=== PATIENT | male | born 1970 | race Caucasian/White ===

== ENCOUNTER 2019-02-02 10:07 | Emergency (ER) | payer OTHER ==
[2019-02-02] MEDS ORDERED: Ondansetron INJ* 2 MG/ML VIAL IV ONE (10:15)
[2019-02-02] MEDS ORDERED: Morphine INJ* 10 MG/ML 1 ML CARPUJECT IV ONE (10:15)
[2019-02-02] MEDS ORDERED: Morphine 10 MG/ML VIAL (1 ml) IV ONE (10:21)
[2019-02-02] MEDS ORDERED: NS 0.9% 1000 ML** 1,000 ML IV ONE (10:43)
[2019-02-02] MEDS ORDERED: Iodixanol* (CONTRAST) 320 MG/ML 100 ML SDV IV ONE (10:59)
[2019-02-02 11:51] LABS: ABS Basophils 0.1 10^3/ul (0-0.2); ABS Eosinophils 0.1 10^3/ul (0-0.6); ABS Lymphocytes 1.2 10^3/ul (1.0-4.8); ABS Monocytes 0.6 10^3/ul (0-0.8); ABS Neutrophils 6.8 10^3/ul (1.5-7.7); Eosinophil % 1.2 %; Hematocrit 34 % (42-52); Hemoglobin 11.3 g/dL (14.0-18.0); Lymphocyte % 13.5 %; Mean Corpuscular HGB Conc 33 g/dL (31-36); Mean Corpuscular Hemoglobin 26 pg (27-31); Mean Corpuscular Volume 79 fL (80-94); Mean Platelet Volume 9.5 fL (7.4-10.4); Platelet Count 194 10^3/uL (150-450); Red Blood Count 4.31 10^6 /uL (4.18-5.48); Red Cell Distribution Width 15 % (10-15); White Blood Count 8.7 10^3/uL (3.5-10.8)
[2019-02-02 12:14] LABS: Albumin 3.7 g/dL (3.2-5.2); Albumin/Globulin Ratio 1.5 (1-3); BUN/Creatinine Ratio 20.5 (8-20); Calcium 8.2 mg/dL (8.6-10.3); EGFR African American 129.7 (>60); EGFR Non-African American 107.2 (>60); Globulin 2.4 g/dL (2-4); Potassium 3.9 mmol/L (3.5-5.0); Total Bilirubin 0.4 mg/dL (0.2-1.0); Total Protein 6.1 g/dL (6.4-8.9)
--- NOTE | 2019-02-02 12:24 | ED ---
Adult Trauma - HPI Summary HPI Summary: This patient is a 48-year-old male presenting to the ED by way of EMS after a ladder fell out from underneath him and he landed directly onto the ladder. He is endorsing diffuse neck and back pain. However, he was able to ambulate immediately following. He is endorsing bilateral calf pain which he states is where he fell onto the ladder. He denies hitting his head or LOC. Denies any confusion, memory loss, visual changes. He is endorsing neck pain, however was able to move about the neck prior to being placed in a c-collar by EMS. He denies any abdominal pain. He denies any anterior like pain or pain to the bilateral upper extremities. He states he has full range of motion, however is endorsing pain diffusely throughout the back as well as to the right buttocks. - History of Current Complaint Chief Complaint: EDTraumaMultiple Stated Complaint: FALL PER EMS Time Seen by Provider: 02/02/19 10:09 Hx Obtained From: Patient Mechanism of Injury: Blunt Trauma Ambulatory at the Scene: No Loss of Consciousness: no loss of consciousness Patient Location: Back Force: Medium Onset/Duration: Started Minutes Ago Onset of Pain: Minutes Onset Severity: Severe Current Severity: Severe Pain Intensity: 10 Pain Scale Used: 0-10 Numeric Location: Neck, Back Character: Aching Aggravating Factor(s): Nothing Alleviating Factor(s): Nothing Associated Signs & Symptoms: Positive: Negative - Allergy/Home Medications Allergies/Adverse Reactions: Allergies Allergy/AdvReac Type Severity Reaction Status Date / Time No Known Allergies Allergy Verified 05/14/12 08:05 Home Medications: Home Medications Melatonin/Pyridoxine HCl (B6) [Melatonin] 2 tab PO BEDTIME PRN 02/02/19 [ History Confirmed 02/02/19] Naproxen Sodium [Aleve] 220 mg PO BID PRN 02/02/19 [History Confirmed 02/02/19] PMH/Surg Hx/FS Hx/Imm Hx Previously Healthy: Yes Endocrine/Hematology History: Reports: Hx Diabetes - hx; none since Gastric Bypass surg 2008 Denies: Hx Anticoagulant Therapy Neurological History: Denies: Hx Dementia - Surgical History Surgery Procedure, Year, and Place: gastric bypass 2008. BILAT KNEE SURGERY - Immunization History Hx Pertussis Vaccination: No Immunizations Up to Date: Yes Infectious Disease History: No Infectious Disease History: Denies: Traveled Outside the [place] in Last 30 Days - Social History Occupation: Employed Full-time Lives: With Family Alcohol Use: Occasionally Alcohol Amount: about 1 drink a day, usually less Hx Substance Use: No Substance Use Type: Reports: Excessive Caffeine Hx Tobacco Use: No Smoking Status (MU): Never Smoked Tobacco Review of Systems Negative: Fever, Chills, Fatigue, Skin Diaphoresis Negative: Palpitations, Chest Pain Negative: Shortness Of Breath, Cough Genitourinary: Negative Positive: no symptoms reported, see HPI Positive: Arthralgia, Myalgia Negative: Rash, Bruising Neurological: Negative All Other Systems Reviewed And Are Negative: Yes Physical Exam Triage Information Reviewed: Yes Vital Signs On Initial Exam: Initial Vitals Temp Pulse Resp BP Pulse Ox 98.6 F 83 16 127/82 100 02/02/19 10:08 02/02/19 10:08 02/02/19 10:08 02/02/19 10:08 02/02/19 10:08 Vital Signs Reviewed: Yes Appearance: Positive: Well-Appearing, Well-Nourished Skin: Positive: Warm, Skin Color Reflects Adequate Perfusion Head/Face: Positive: Normal Head/Face Inspection Eyes: Positive: EOMI, LUZ, Conjunctiva Clear Neck: Positive: Supple, No Lymphadenopathy Respiratory/Lung Sounds: Positive: Clear to Auscultation, Breath Sounds Present Cardiovascular: Positive: RRR, Pulses are Symmetrical in both Upper and Lower Extremities Musculoskeletal: Positive: Pain @ - diffuse back pain Neurological: Positive: Sensory/Motor Intact, Alert, Oriented to Person Place, Time Psychiatric: Positive: Normal, Affect/Mood Appropriate AVPU Assessment: Alert Diagnostics - Vital Signs Vital Signs Temp Pulse Resp BP Pulse Ox 02/02/19 11:33 63 20 113/74 02/02/19 10:34 20 02/02/19 10:08 98.6 F 83 16 127/82 100 - Laboratory Lab Results: Lab Results 02/02/19 02/02/19 02/02/19 Range/Units 11:43 11:43 11:43 WBC 8.7 (3.5-10.8) 10^3/uL RBC 4.31 (4.18-5.48) 10^6 /uL Hgb 11.3 L (14.0-18.0) g/dL Hct 34 L (42-52) % MCV 79 L (80-94) fL MCH 26 L (27-31) pg MCHC 33 (31-36) g/dL RDW 15 (10-15) % Plt Count 194 (150-450) 10^3/uL MPV 9.5 (7.4-10.4) fL Neut % (Auto) 78.0 % Lymph % (Auto) 13.5 % [place] % (Auto) 6.7 % Eos % (Auto) 1.2 % Baso % (Auto) 0.6 % Absolute Neuts (auto) 6.8 (1.5-7.7) 10^3/ul Absolute Lymphs (auto) 1.2 (1.0-4.8) 10^3/ul Absolute Monos (auto) 0.6 (0-0.8) 10^3/ul Absolute Eos (auto) 0.1 (0-0.6) 10^3/ul Absolute Basos (auto) 0.1 (0-0.2) 10^3/ul Absolute Nucleated RBC 0.0 10^3/ul Nucleated RBC % 0.0 Sodium 139 (135-145) mmol/L Potassium 3.9 (3.5-5.0) mmol/L Chloride 109 (101-111) mmol/L Carbon Dioxide 26 (22-32) mmol/L Anion Gap 4 (2-11) mmol/L BUN 16 (6-24) mg/dL Creatinine 0.78 (0.67-1.17) mg/dL Est GFR ( Amer) 129.7 (>60) Est GFR (Non-Af Amer) 107.2 (>60) BUN/Creatinine Ratio 20.5 H (8-20) Glucose 93 (70-100) mg/dL Lactic Acid 0.8 (0.5-2.0) mmol/L Calcium 8.2 L (8.6-10.3) mg/dL Total Bilirubin 0.40 (0.2-1.0) mg/dL AST 22 (13-39) U/L ALT 20 (7-52) U/L Alkaline Phosphatase 62 (34-104) U/L Total Protein 6.1 L (6.4-8.9) g/dL Albumin 3.7 (3.2-5.2) g/dL Globulin 2.4 (2-4) g/dL Albumin/Globulin Ratio 1.5 (1-3) Result Diagrams: 02/02/19 11:43 02/02/19 11:43 Lab Statement: Any lab studies that have been ordered have been reviewed, and results considered in the medical decision making process. Adult Trauma Course/Dx - Course Course Of Treatment: Patient arrives by EMS in a c-collar. Patient is refusing clothing removal/cutting clothing and states he will do it himself if needed. He states he is able to move all extremities, however he is endorsing diffuse back pain. He has back pain at baseline. He is also endorsing cervical spine tenderness. Physical examination, patient has no pain directly over the cervical spine but diffuse pain throughout back. No step-off noted. No signs of trauma. He is moving all [address] chest/abdomen/pelvis with a CT cervical spine obtained. These were all without any significant findings except for swelling to the posterior upper buttocks on the right side. C-collar removed and patient was ambulatory. He states he is okay for discharge at this time and feels well, just "sore." He was given morphine while in the ED and he is given tramadol and Flexeril for prescriptions. - Diagnoses Differential Diagnosis/HQI/PQRI: Positive: Contusion(s), Hematoma(s) Provider Diagnoses: Fall, Trauma Discharge - Sign-Out/Discharge Documenting (check all that apply): Patient Departure Patient Received Moderate/Deep Sedation with Procedure: No - Discharge Plan Condition: Good Disposition: HOME Prescriptions: Cyclobenzaprine TAB* [Flexeril TAB*] 10 mg PO BID PRN #10 tab PRN Reason: Pain - Mild traMADol TAB* [Ultram*] 50 mg PO Q8H PRN #12 tab MDD 3 PRN Reason: Pain Patient Education Materials: Hematoma (ED) Forms: *Work Release Referrals: Emiliano Hope MD [Primary Care Provider] - Additional Instructions: Please return to the ED if he develop any worsening or changing symptoms Heat as much as possible and rest Ibuprofen 600mg 3 times daily 5 days for inflammation Tramadol as needed for pain Flexeril twice daily for a muscle relaxer - Billing Disposition and Condition Condition: GOOD Disposition: Home
[2019-02-02 12:38] VITALS: BP 135/77
== END 2019-02-02 12:37 | disposition home or self-care (01) ==
LOC: ED 10:07
DX: M54.9 Dorsalgia, unspecified (principal); M79.662 Pain in left lower leg; M79.661 Pain in right lower leg; M50.323 Other cervical disc degeneration at C6-C7 level; W11.XXXA Fall on and from ladder, initial encounter; Y92.9 Unspecified place or not applicable; Y99.0 Civilian activity done for income or pay; Z98.84 Bariatric surgery status
CPT/HCPCS: 36415; 70450; 71260; 72125; 74177; 80053; 83605; 85025; 96361; 96374; 96375; 99283; J2270; J2405; Q9967

== ENCOUNTER 2019-05-30 15:04 | Emergency (ER) | payer BC, OTHER ==
[2019-05-30] MEDS ORDERED: Ketorolac INJ* 30 MG/ML 1 ML VIAL IM ONE (15:36)
--- NOTE | 2019-05-30 15:39 | ED ---
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 He notes that he has Hx of bad knees but his left knee is abnormally swollen, burning, has decreased ROM, and he hears crunching/popping when he moves it. He rates his current pain severity due to his left knee a 9/ 10. No aggravating or alleviating factors noted. He also denies any fever. - History of Current Complaint Chief Complaint: EDExtremityLower Stated Complaint: LEFT KNEE PAIN PER PT Time Seen by Provider: 05/30/19 15:22 Hx Obtained From: Patient Onset of Pain: Hours Onset/Duration: Still Present Severity Initially: Severe Severity Currently: Severe Pain Intensity: 9 Pain Scale Used: 0-10 Numeric Timing: Constant, Lasting Hours Location: Is Discrete @ - left knee Associated Signs And Symptoms: Positive: Swelling, Knee Pain. Negative: Fever Aggravating Factor(s): Nothing Alleviating Factor(s): Nothing - Allergies/Home Medications Allergies/Adverse Reactions: Allergies Allergy/AdvReac Type Severity Reaction Status Date / Time No Known Allergies Allergy Verified 05/30/19 15:14 PMH/Surg Hx/FS Hx/Imm Hx Endocrine/Hematology History: Reports: Hx Diabetes - hx; none since Gastric Bypass surg 2009 Denies: Hx Anticoagulant Therapy Neurological History: Denies: Hx Dementia - Surgical History Surgery Procedure, Year, and Place: gastric bypass 2009. BILAT KNEE SURGERY Infectious Disease History: No Infectious Disease History: Denies: Traveled Outside the [place] in Last 30 Days - Family History Known Family History: Negative: Renal Disease - Social History Alcohol Use: Occasionally Alcohol Amount: about 1 drink a day, usually less Hx Substance Use: No Substance Use Type: Reports: Excessive Caffeine Hx Tobacco Use: No Smoking Status (MU): Never Smoked Tobacco Review of Systems Negative: Fever Positive: Other - pos - swelling, knee pain All Other Systems Reviewed And Are Negative: Yes Physical Exam - Summary Physical Exam Summary: Constitutional: Well-developed, Well-nourished, Alert. (-) Distressed Skin: Warm, Dry HENT: Normocephalic; Atraumatic Eyes: Conjunctiva normal Neck: Musculoskeletal ROM normal neck. (-) JVD, (-) Stridor, (-) Tracheal deviation Cardio: Rhythm regular, rate normal, Heart sounds normal; Intact distal pulses; The pedal pulses are 2+ and symmetric. Radial pulses are 2+ and symmetric. (-) Murmur Pulmonary/Chest wall: Effort normal. (-) Respiratory distress, (-) Wheezes, (-) Rales Abd: Soft, (-) tenderness, (-) Distension, (-) Guarding, (-) Rebound Musculoskeletal: (-) Edema Left Knee: Diffuse swelling, minimal erythema, pain with movement, NV intact, presentation not concerning for septic joint Lymph: (-) Cervical adenopathy Neuro: Alert, Oriented x3 Psych: Mood and affect Normal Triage Information Reviewed: Yes Vital Signs On Initial Exam: Initial Vitals Temp Pulse Resp BP Pulse Ox 98.8 F 82 16 128/76 99 05/30/19 15:10 05/30/19 15:10 05/30/19 15:10 05/30/19 15:10 05/30/19 15:10 Vital Signs Reviewed: Yes Procedures - Sedation Patient Received Moderate/Deep Sedation with Procedure: No Diagnostics - Vital Signs Vital Signs Temp Pulse Resp BP Pulse Ox 05/30/19 15:10 98.8 F 82 16 128/76 99 - Laboratory Lab Statement: Any lab studies that have been ordered have been reviewed, and results considered in the medical decision making process. - Radiology Knee XR Radiology Interpretation Completed By: Radiologist Summary of Radiographic Findings: IMPRESSION: 1. MODERATE JOINT EFFUSION. 2. TRICOMPARTMENTAL CHONDROCALCINOSIS. 3. NO FRACTURE IDENTIFIED. ED Physician has reviewed this report. 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 He notes that he has Hx of bad knees but his left knee is abnormally swollen, burning, has decreased ROM, and he hears crunching/popping when he moves it. A knee XR reveals: 1. MODERATE JOINT EFFUSION. 2. TRICOMPARTMENTAL CHONDROCALCINOSIS. 3. NO FRACTURE IDENTIFIED. Pt will be given knee immobilizer. Final Dx is knee joint effusion. Pt will be discharged home with PCP and orthopedics follow up. Pt is agreeable with this plan. - Diagnoses Provider Diagnoses: Knee effusion, left Discharge ED - Sign-Out/Discharge Documenting (check all that apply): Patient Departure - discharge - Discharge Plan Condition: Stable Disposition: HOME Patient Education Materials: Swollen Knee Joint (ED) Forms: *Work Release Referrals: Emiliano Hope MD [Primary Care Provider] - 3 Days Robbin Leon MD [Medical Doctor] - 3 Days Additional Instructions: Please follow up with you primary care provider within 3 days. Please return to the ED for any new or worsening symptoms. - Billing Disposition and Condition Condition: STABLE Disposition: Home - Attestation Statements Document Initiated by Scribe: Yes Documenting Scribe: Darian Rapp Provider For Whom Guadalupe is Documenting (Include Credential): Ilya Lima DO Scribe Attestation: IDarian, scribed for Ilya Lima DO on 05/30/19 at 1823. Scribe Documentation Reviewed: Yes Provider Attestation: The documentation as recorded by the scribeDarian accurately reflects the service I personally performed and the decisions made by , Ilya Lima DO Status of Scribe Document: Viewed
[2019-05-30 17:47] VITALS: BP 108/67
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
--- OUTSIDE RECORDS SUMMARY | 2019-06-02 15:40 | XMS REPORT | Summary of Care ---
:1970 Author Organization [facility] Address [address] [place] [address] Care Team Providers Name Role Phone Emiliano Hope Primary Care Provider Reason for Referral MRI/CAT/PET Scan (Routine) Status Reason Specialty Diagnoses / Referred By Referred To Procedures Contact Contact Pending Review Diagnoses Neck pain Clarissa, Procedures MR CERVICAL SPINE WO CONTRAST ASIF Andreson [address] [place] [id number] Refer to Department Only (Routine) Status Reason Specialty Diagnoses / Referred By Referred To Contact Procedures Contact Authorized Physical Therapy Diagnoses Neck pain Radiculopathy affecting upper extremity Pacheco Romo NP Orthopaedics - [address] [facility] Physical [place], [place] Therapy [id number] [place] [address] Drive Phone: [address] [phone] [place], [place] Fax: [phone] Reason for Visit Reason Comments Numbness bilateral arms and hands are going numb, has carpal tunnel and has been digging water line by hand for past few days and he thinks he overdid it. Injection flu vaccine Encounter Details Date Type Department Care Team Description 04/15/2019 Office Visit Johnathan Cuevas [place], Radiculopathy affecting upper extremity (Primary Dx); Practice [facility] [place] Neck pain [address] [facility] [address] [place] [address] [place] [address] [phone] Allergies Active Allergy Reactions Severity Noted Date Comments No Known Drug Allergy 07/22/2007 documented as of this encounter (statuses as of 04/15/2019) Medications Medication Sig Dispensed Refills Start Date End Date Status Childrens Multivitamin 60 Take by mouth. 0 Active MG Oral Chew Tab CALCIUM 500 + D PO Take by mouth. 0 Active cyanocobalamin (VITAMIN Take 50 mcg by 0 Active B12) 50 MCG Oral Tab mouth. Naproxen Sodium (ALEVE) Take by mouth 0 Active 220 MG Oral Cap NEEDED. diclofenac (VOLTAREN) 75 Take 1 Tab by 60 Tab 0 02/06/2019 Active MG Oral Tab EC mouth TWICE DAILY. cyclobenzaprine Take 1 Tab by 42 Tab 0 02/06/2019 Active (FLEXERIL) 10 MG Oral Tab mouth THREE TIMES DAILY NEEDED (muscle spasm). Misc. Devices (DONUT 20 Inches by 1 Each 0 02/06/2019 Active PESSARY) Does not apply Does not apply Misc route DAILY NEEDED (sitting). Melatonin 1 MG Oral Cap Take 2 mg by 0 Active mouth. predniSONE (DELTASONE) 20 Take 1 Tab by 10 Tab 0 04/15/2019 Active MG Oral TabIndications: mouth TWICE Neck pain, Radiculopathy DAILY. affecting upper extremity documented as of this encounter (statuses as of 04/15/2019) Active Problems Problem Noted Date History of diabetes mellitus resolved following bariatric surgery 12/10/2016 Obesity, unspecified 07/22/2007 documented as of this encounter (statuses as of 04/15/2019) Resolved Problems Problem Noted Date Resolved Date Diabetes mellitus 07/22/2007 11/11/2015 Overview: Replaced inactive diagnosis KEYON (obstructive sleep apnea) 07/22/2007 11/11/2015 documented as of this encounter (statuses as of 04/15/2019) Immunizations Name Administration Dates Next Due Influenza [...] Sign Reading Time Taken Comments Blood Pressure 122/68 04/15/2019 2:52 PM EDT Pulse 68 04/15/2019 2:52 PM EDT Temperature 37.2 04/15/2019 2:52 PM C (99 EDT F) Respiratory Rate 18 04/15/2019 2:52 PM EDT Oxygen Saturation 98% 04/15/2019 2:52 PM EDT Inhaled Oxygen Concentration - - Weight 115.8 kg (255 lb 3.2 oz) 04/15/2019 2:52 PM EDT Height 174 cm (5' 8.5") 04/15/2019 2:52 PM EDT Body Mass Index 38.24 04/15/2019 2:52 PM EDT documented in this encounter Patient Instructions Patient InstructionsMonica Romo NP - 04/15/2019 3:00 PM EDT Referral to physical therapy is in - schedule this appointment. We will call you to schedule the MRI. Prednisone twice daily for 5 days. Continue flexeril and nsaids. Heating pad to neck. Rest and avoid aggravating activities. Cervical Radiculopathy WHAT YOU NEED TO KNOW: What is cervical radiculopathy? Cervical radiculopathy is a painful condition that happens when a spinal nerve in your neck is pinched or irritated. What causes cervical radiculopathy? Changes in the vertebrae (bones) and discs in your neck can putpressure on a spinal nerve. Discs are natural, spongy cushions between your vertebrae that allow your spine to move. The following can cause a pinched nerve: Disc damage may occur if a disc flattens, bulges, or moves over time. An injury can also causedisc damage. Cervical spondylosis is when the vertebrae in your neck break down. This normally occurs as you age. Growths , such as tumors or cysts (fluid-filled lumps), may grow and press on the nerve. What are the signs and symptoms of cervical radiculopathy? The most common symptom is sharp pain that travels from your neck all the way down your arm. You may have pain in your shoulder, chest, and hand. The pain may get worse with movement or when you cough or sneeze. 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 Your healthcare provider will ask when and how your symptoms began. He will gently press on your neck to check for tenderness and areas that are not shaped correctly. He will also check your arms and hands for numbness or weakness. You may have any of the following: Provocative tests are done to check your response to certain movements. He will ask you to move your neck, shoulder, and arm in different ways. Some movements will increase your symptoms, while others will make you feel better. An x-ray is a picture of the bones and tissues in your neck. An MRI or a CT scan may be used to take pictures of your neck. The pictures can show problems and changes in your nerves, discs, and vertebrae. You may be given dye to help the pictures show up better. Tell the healthcare provider if you have ever had an allergic reaction to contrast dye. Do notenter the MRI room with anything metal. Metal can cause serious injury. Tell the healthcare providerif you have any metal in or on your body. An electromyography is also called an EMG. An EMG is done to test the function of your musclesand the nerves that control them. Electrodes (wires) are placed on the muscle being tested. [place] may be attached to the electrodes and placed in your skin. The electrical activity of your muscles and nerves is measured by a machine attached to the electrodes. Your muscles are tested at rest and during movement. How is cervical radiculopathy treated? NSAIDs decrease swelling and pain. This medicine can be bought without a doctor's order. This medicine can cause stomach bleeding or kidney problems in certain people. If you take blood thinner medicine, always ask your healthcare provider if NSAIDs are safe for you. Always read the medicine label and follow the directions on it before using this medicine. Prescription pain medicine may be given to decrease pain. Do not wait until the pain is severebefore you take this medicine. Steroids help decrease pain and swelling. These may be given as a pill or as an injection in your neck. You may need more than 1 injection if your symptoms do not improve after the first treatment. Physical therapy helps stretch and strengthen your muscles. Your physical therapist can teach you how to improve your posture and the way you hold your neck. He may also teach you how to be safely active and avoid further injury. He can also help you develop an exercise program that is safe for your back and neck. Surgery may be used to treat a pinched nerve if other treatments have not helped after 6 to 12weeks. How can I manage my symptoms? Ice helps decrease swelling and pain. Ice may also help prevent tissue damage. Use an ice pack, or put crushed ice in a plastic bag. Cover it with a towel and place it on your neck for 15 to 20 minutes every hour or as directed. Rest when you feel it is needed. Slowly start to do more each day. Return to your daily activities as directed. Wear a soft collar. You may be given a soft collar to support your neck while you sleep. Wear the soft collar only as directed. Do light stretches and regular exercise. Your healthcare provider may suggest light stretches to help decrease stiffness in your neck and arm as you recover. After your pain is controlled, you may benefit from regular exercise. Ask what type of exercise is safe for your back and neck. Review your work area. A comfortable work area can help prevent neck strain. Ask your employerfor an ergonomic review to check the position of your desk, chair, phone, and computer. Make any necessary adjustments for your comfort. When should I contact my healthcare provider? You are losing weight without trying. Your pain is worse, even with medicine. One or both hands feel more numb than before, or you cannot move your fingers well. You have questions or concerns about your condition or care. CARE AGREEMENT: You have the right to help plan your care. Learn about your health condition and how it may be treated. Discuss treatment options with your caregivers to decide what care you want to receive. You always have the right to refuse treatment. The above information is an educational audiologist only. It is not intended as medical advice for individual conditions or treatments. Talk to your doctor, nurse or pharmacist before following any medical regimen to see if it is safe and effective for you. 2016 [employer] Information is for End User's use only and may not be sold, redistributed or otherwise used for commercial purposes. All illustrations and images included in CareNotes are the copyrighted property of [employer] or [employer]. documented in this encounter Progress Notes Monica Romo NP - 04/15/2019 3:00 PM EDT PATIENT: Darrell Felton : 1970 DATE OF SERVICE: 04/15/2019 CHIEF COMPLAINT: Chief Complaint Patient presents with Numbness bilateral arms and hands are going numb, has carpal tunnel and has been digging water line by handfor past few days and he thinks he overdid it. Injection flu vaccine Subjective HISTORY OF PRESENT ILLNESS: Darrell Felton is a 48-y.o. male. HPI He has carpal tunnel. He replaced water line recently, had to do a lot of digging over the last 2 days by hand, now he is having difficulty closing his fist, burning in his wrist, numbness down arms from elbows to fingers like pins and needles "when hands fall asleep". He has been taking flexeril and diclofenac which hasn't been helping with the pain, having muscle spasms in his elbow and forearm.Numbness is entire bilat hands. He has neck and back pain chronically, disc problems in neck, long time ago injured his back moving a desk at work upper back/neck. Discs slips sometimes and then he cant move head neck or back. Not having increased pain in neck/ back after digging, at baseline. 02/02/19 fell 16 feet off a ladder. Neck and back pain at that time, Ct scan at ER was negative for acute injuries. Past Medical History: Diagnosis Date B12 deficiency [...] mouth THREE TIMES DAILY NEEDED (muscle spasm). diclofenac (VOLTAREN) 75 MG Oral Tab EC Take 1 Tab by mouth TWICE DAILY. Melatonin 1 MG Oral Cap Take 2 mg by mouth. Misc. Devices (DONUT PESSARY) Does not apply Misc 20 Inches by Does not apply route DAILY NEEDED (sitting). Naproxen Sodium (ALEVE) 220 MG Oral Cap Take by mouth NEEDED. predniSONE (DELTASONE) 20 MG Oral Tab Take 1 Tab by mouth TWICE DAILY. No current facility-administered medications for this visit. [...] file Gets together: Not on file Attends voodoo service: Not on file Active member of [...] Narrative Not exercise due to knee problems Over the last 2 weeks, have you been feeling down, depressed, anxious, or hopeless?: 0 Over the past 2 weeks, have you felt little interest or pleasure in doing things ?: 0 REVIEW OF SYSTEMS: Review of Systems Constitutional: Negative for chills, fever and malaise/fatigue. HENT: Negative for congestion, sinus pain and sore throat. Respiratory: Negative for cough and shortness of breath. Cardiovascular: Negative for chest pain and palpitations. Musculoskeletal: Positive for back pain, joint pain (see hpi) and neck pain. Neurological: Positive for tingling and sensory change (see hpi). Negative for dizziness, weakness and headaches. Objective PHYSICAL EXAM: VITALS: BP 122/68 (BP Location: Right arm, Patient Position: Sitting) | Pulse 68 | Temp 99 F (37.2 C) (Tympanic) | Resp 18 | Ht 5' 8.5" (1.74 m) | Wt 255 lb 3.2 oz (115.8 kg) | SpO2 98%| BMI 38.24 kg/m Body mass index is 38.24 kg/m. Physical Exam Vitals signs and nursing note reviewed. Constitutional: General: He is not in acute distress. Appearance: Normal appearance. He is well-developed. Cardiovascular: Rate and Rhythm: Normal rate and regular rhythm. Heart sounds: Normal heart sounds. No murmur. No friction rub. No gallop. Pulmonary: Effort: Pulmonary effort is normal. No respiratory distress. Breath sounds: Normal breath sounds. Musculoskeletal: Right shoulder: He exhibits normal range of motion, no tenderness and no crepitus. Left shoulder: Normal. He exhibits normal range of motion, no tenderness and no crepitus. Right elbow: Normal. Left elbow: Normal. Right wrist: Normal. Left wrist: Normal. Cervical back: He exhibits tenderness, pain and spasm. He exhibits normal range of motion, no swelling, no edema and no deformity. Thoracic back: Normal. Lumbar back: Normal. Back: Right upper arm: Normal. Right forearm: Normal. Neurological: General: No focal deficit present. Mental Status: He is alert. Sensory: Sensation is intact. Motor: Motor function is intact. Coordination: Coordination is intact. Deep Tendon Reflexes: Reflexes are normal and symmetric. Psychiatric: Mood and Affect: Mood and affect normal. Speech: Speech normal. Behavior: Behavior normal. Behavior is cooperative. ASSESSMENT / IMPRESSION: ICD-9-CM ICD-10-CM 1. Radiculopathy affecting upper extremity 723.4 M54.10 REFER TO PHYSICAL THERAPY / REHAB predniSONE (DELTASONE) 20 MG Oral Tab 2. Neck pain 723.1 M54.2 REFER TO PHYSICAL THERAPY / REHAB predniSONE (DELTASONE) 20 MG Oral Tab MR CERVICAL SPINE WO CONTRAST Plan 1. Neck pain - REFER TO PHYSICAL THERAPY / REHAB; Standing - predniSONE (DELTASONE) 20 MG Oral Tab; Take 1 Tab by mouth TWICE DAILY. Dispense: 10 Tab; Refill:0 - MR CERVICAL SPINE WO CONTRAST; Future If after conservative measures he is still having problems will refer to Dr. Muro. 2. Radiculopathy affecting upper extremity - REFER TO PHYSICAL THERAPY / REHAB; Standing - predniSONE (DELTASONE) 20 MG Oral Tab; Take 1 Tab by mouth TWICE DAILY. Dispense: 10 Tab; Refill:0 Referral to physical therapy is in - schedule this appointment. We will call you to schedule the MRI. Prednisone twice daily for 5 days. Continue flexeril and nsaids. Heating pad to neck. Rest and avoid aggravating activities. Author: Monica Romo NP 04/15/2019 17:14 documented in this encounter Plan of Treatment Date Type Specialty Care Team Description 05/04/2019 Office Visit Physical Therapy Jacquelin Diaz, PT [address] [place] [address] [phone] Name Type Priority Associated Diagnoses Order Schedule MR CERVICAL SPINE WO Imaging Routine Neck pain Expected: 04/15/2019, CONTRAST Expires: 04/14/2020 Name Type Priority Associated Diagnoses Order Schedule REFER TO PHYSICAL Referral Routine Neck pain 99 Occurrences starting THERAPY / REHAB Radiculopathy affecting 04/15/2019 until upper extremity 04/15/2020 Health Maintenance Due Date Last Done Comments DIABETES SCREENING 12/06/2018 12/06/2017, 12/06/2017, 12/05/2016, Additional history exists INFLUENZA VACCINE (#1) 2019 DEPRESSION SCREENING 04/15/2020 04/15/2019 LIPID DISORDER SCREENING 12/05/2021 12/05/2016, 11/07/2015, 03/10/2013, Additional history exists HPV IMMUNIZATION SERIES Aged Out No longer eligible based on patient's age to complete this topic MENINGOCOCCAL VACCINE IMM Aged Out No longer eligible based on patient's age to complete this topic PNEUMOCOCCAL 0-64 YRS Aged Out No longer eligible based on patient's age to complete this topic documented as of this encounter Results Not on filedocumented in this encounter Visit Diagnoses Diagnosis Radiculopathy affecting upper extremity - Primary Brachial neuritis or radiculitis nos Neck pain Cervicalgia documented in this encounter Insurance Payer Benefit Plan / Subscriber ID Effective Dates Phone Address Type Group [facility] xxxxxxxxxxxx 2014-Present Blue Cross/Blue Shield Guarantor Name Account Type Relation to Date of Phone Billing Patient Address Drarell Felton Personal/Family 1970 [address] ([address]) [address] [phone] [place], [place] (Work) [id number] documented as of this encounter
== END 2019-05-30 17:45 | disposition home or self-care (01) ==
LOC: ED 15:04
DX: M25.462 Effusion, left knee (principal); M11.262 Other chondrocalcinosis, left knee; M25.562 Pain in left knee
CPT/HCPCS: 96372; 99281; J1885

== ENCOUNTER 2019-06-02 15:39 | Emergency (ER) | payer BC ==
--- NOTE | 2019-06-02 17:07 | ED ---
Lower Extremity - HPI Summary HPI Summary: Patient complains of persistent left knee pain 2 weeks. History of chronic knee pain. Decreased range of motion, pain increased with movement. Denies new trauma. Patient was seen here 3 days ago for same symptoms, diagnosed with swollen knee, provided with immobilizer and crutches and advised to follow-up with orthopedics. Patient states he has appointment this Saturday with orthopedics. Denies fever, cough, sore throat, CV, SOB, N/3/D, developing, change in urine, change in BM. Medical history is none. - History of Current Complaint Chief Complaint: EDExtremityLower Stated Complaint: LT KNEE INJURY PER PT Time Seen by Provider: 06/02/19 17:03 Hx Obtained From: Patient Mechanism Of Injury: Unknown Onset of Pain: Days Onset/Duration: Weeks Severity Initially: Severe Severity Currently: Severe Pain Intensity: 8 Pain Scale Used: 0-10 Numeric Timing: Constant Location: Is Discrete @ Character Of Pain: Aching Associated Signs And Symptoms: Positive: Swelling, Knee Pain Aggravating Factor(s): Standing, Ambulation Alleviating Factor(s): Rest, Elevation Able to Bear Weight: Yes - Allergies/Home Medications Allergies/Adverse Reactions: Allergies Allergy/AdvReac Type Severity Reaction Status Date / Time No Known Allergies Allergy Verified 06/02/19 15:50 PMH/Surg Hx/FS Hx/Imm Hx Endocrine/Hematology History: Reports: Hx Diabetes - hx; none since Gastric Bypass surg 2009 Denies: Hx Anticoagulant Therapy History: Denies: Hx Dialysis Sensory History: Denies: Hx Eye Prosthesis Opthamlomology History: Denies: Hx Legally Blind EENT History: Denies: Hx Deafness Neurological History: Denies: Hx Dementia - Surgical History Surgery Procedure, Year, and Place: gastric bypass 2009. BILAT KNEE SURGERY Infectious Disease History: No Infectious Disease History: Denies: Traveled Outside the [place] in Last 30 Days - Family History Known Family History: Negative: Renal Disease - Social History Alcohol Use: Occasionally Alcohol Amount: about 1 drink a day, usually less Hx Substance Use: No Substance Use Type: Reports: Excessive Caffeine Hx Tobacco Use: No Smoking Status (MU): Never Smoked Tobacco Review of Systems Constitutional: Negative Eyes: Negative ENT: Negative Cardiovascular: Negative Respiratory: Negative Gastrointestinal: Negative Genitourinary: Negative Musculoskeletal: Other Skin: Negative Neurological: Negative Psychological: Normal All Other Systems Reviewed And Are Negative: Yes Physical Exam - Summary Physical Exam Summary: 90 range of motion. Mild swelling along lateral left knee. No evidence of wound, deformity, erythema, ecchymosis, extra warmth. PMS intact distally. Triage Information Reviewed: Yes Vital Signs On Initial Exam: Initial Vitals Temp Pulse Resp BP Pulse Ox 98.3 F 76 16 125/86 99 06/02/19 15:46 06/02/19 15:46 06/02/19 15:46 06/02/19 15:46 06/02/19 15:46 Vital Signs Reviewed: Yes Appearance: Positive: Well-Appearing Skin: Positive: Warm Head/Face: Positive: Normal Head/Face Inspection Eyes: Positive: Normal Neck: Positive: Supple Respiratory/Lung Sounds: Positive: Clear to Auscultation Cardiovascular: Positive: Normal Abdomen Description: Positive: Nontender Musculoskeletal: Positive: Normal Neurological: Positive: Normal Psychiatric: Positive: Normal AVPU Assessment: Alert - Hasty Coma Scale Best Eye Response: 4 - Spontaneous Best Motor Response: 6 - Obeys Commands Best Verbal Response: 5 - Oriented Coma Scale Total: 15 Procedures - Sedation Patient Received Moderate/Deep Sedation with Procedure: No Diagnostics - Vital Signs Vital Signs Temp Pulse Resp BP Pulse Ox 06/02/19 15:46 98.3 F 76 16 125/86 99 - Laboratory Lab Statement: Any lab studies that have been ordered have been reviewed, and results considered in the medical decision making process. Lower Extremity Course/Dx - Course Course Of Treatment: Patient complains of persistent left knee pain 2 weeks. History of chronic knee pain. Decreased range of motion, pain increased with movement. Denies new trauma. Patient was seen here 3 days ago for same symptoms, diagnosed with swollen knee, provided with immobilizer and crutches and advised to follow-up with orthopedics. Patient states he has appointment this Saturday with orthopedics. Denies fever, cough, sore throat, CV, SOB, N/3/D , developing, change in urine, change in BM. Medical history is none. Vital signs within normal limits. Prior x-ray negative for fracture. Patient states he has not been wearing immobilizer. Patient advised to follow-up with orthopedics at scheduled appointment on Saturday. - Diagnoses Provider Diagnoses: Knee pain Discharge ED - Sign-Out/Discharge Documenting (check all that apply): Patient Departure - Discharge Plan Condition: Stable Disposition: HOME Prescriptions: HYDROcodone/ACETAMIN 5-325 MG* [[place] 5-325 TAB*] 1 tab PO Q8H PRN 2 Days #6 tab MDD 3 tabs PRN Reason: Pain Patient Education Materials: Knee Pain (ED) Forms: *Work Release Referrals: Emiliano Hope MD [Primary Care Provider] - Additional Instructions: Follow-up with your scheduled appointment with orthopedics this Saturday. - Billing Disposition and Condition Condition: STABLE Disposition: Home - Attestation Statements Provider Attestation: I was available for consultation for this patient. I did not evaluate the patient, or participate in any medical decision making or disposition decisions unless I am specifically named in the chart as having consulted on the patient. If I have consulted on the patient, please see my own ED note on the patient encounter. Lyn Scott MD
[2019-06-02 18:15] VITALS: BP 133/81
== END 2019-06-02 17:50 | disposition home or self-care (01) ==
LOC: ED 15:39
DX: M25.562 Pain in left knee (principal); Z98.84 Bariatric surgery status
CPT/HCPCS: 99282